=== PATIENT | male | born 1950 | race Caucasian/White ===

== ENCOUNTER 2023-08-14 06:30 | Day surgery (SDC) | payer MEDICARE, BC, SELFPAY ==
[2023-08-14] VITALS (7 sets, daily range): BP systolic 144–155; BP diastolic 70–97; BMI 23.9
[2023-08-14] MEDS: NORMOSOL-R 1000 IV (11:12)
== END 2023-08-14 15:27 | disposition home or self-care (01) ==
LOC: SDS 06:30
PROVIDERS: ATTENDING PHYSICIAN Surgery
DX: N43.3 Hydrocele, unspecified (principal)
CPT/HCPCS: 55040; 88302; 93005

== ENCOUNTER → 2023-10-07 16:34 | Outpatient (REF) | payer MEDICARE, BC, SELFPAY | LOC: RAD 16:34 | PROVIDERS: ATTENDING PHYSICIAN Surgery; FAMILY PHYSICIAN Family Medicine | DX: N43.0 Encysted hydrocele (principal); N50.89 Other specified disorders of the male genital organs; N43.3 Hydrocele, unspecified; K40.90 Unilateral inguinal hernia, without obstruction or gangrene, not specified as recurrent | CPT/HCPCS: 76870; 76882; 93976 ==

== ENCOUNTER → 2023-11-19 08:45 | Outpatient (REF) | payer MEDICARE, BC, SELFPAY | LOC: CLAB 08:45 | PROVIDERS: ATTENDING PHYSICIAN Surgery | DX: N43.3 Hydrocele, unspecified (principal) | CPT/HCPCS: 88302 ==

== ENCOUNTER → 2023-11-19 16:03 | Outpatient (REF) | payer SELFPAY ==
[2023-11-19 15:16] LABS: Hepatitis B Surface Antibody Negative
[2023-11-19 15:37] LABS: Hepatitis B Surface Antigen Negative (Negative)
[2023-11-19 15:46] LABS: HIV Combo Negative (Negative)
[2023-11-19 15:54] LABS: Hepatitis C Antibody Negative (Negative)
== END ==
LOC: CLAB 16:03
PROVIDERS: ATTENDING PHYSICIAN Surgery
DX: Z77.21 Contact with and (suspected) exposure to potentially hazardous body fluids (principal)
CPT/HCPCS: 86706; 86803; 87340; 87389